=== PATIENT | female | born 1970 | race Caucasian/White ===

== ENCOUNTER 2020-08-29 20:03 | Emergency (ER) | payer SELFPAY ==
[2020-08-29 21:37] LABS: #Basophils 0.1 10x3/uL (0.0-0.2); #Eosinphils 0.2 10x3/uL (0.0-0.5); #Monocytes 0.5 10x3/uL (0.0-1.1); #Neutrophils 5.2 10x3/uL (1.5-8.4); %Basophils 0.9 % (0.0-2.0); %Eosinophils 2.1 % (0.0-6.0); %Lymphocytes 36.2 % (18.0-47.0); %Monocytes 5.3 % (0.0-10.0); %Neutrophils 55.3 % (40.0-75.0); Hemoglobin 11.6 g/dL (12.0-15.5); Mean Corpuscular HGB CONC 32.3 g/dL (32.0-36.0); Mean Corpuscular Hemoglobin 28.6 pg (27.0-33.0); Mean Corpuscular Volume 88.4 fl (81.6-98.3); Mean Platelet Volume 10.9 fl (7.4-10.4); Platelet Count 304 10x3/uL (150-450); RBC Distribution Width 14.5 % (11.5-14.5); Red Blood Cell (RBC) Count 4.06 10x6/uL (3.90-5.03); White Blood Cell (WBC) Count 9.3 10x3/uL (3.5-10.5)
[2020-08-29 21:50] LABS: ALT (SGPT) 12 U/L (8-55); AST (SGOT) 23 U/L (5-34); Albumin 4.2 g/dL (3.5-5.0); Alkaline Phosphatase 60 U/L (40-110); Anion Gap 14 mmol/L (10-20); BUN (Urea Nitrogen) 21 mg/dL (7.0-18.7); Bilirubin, Total 0.1 mg/dL (0.2-1.2); Calc. Creatinine Clearance 0 mL/min (70-130); Calcium 9.9 mg/dL (7.8-10.44); Carbon Dioxide 27 mmol/L (22-29); Chloride 96 mmol/L (98-107); Globulin 4.4 g/dL (2.4-3.5); Glucose 84 mg/dL (70-105); Potassium 4.4 mmol/L (3.5-5.1); Protein, Total 8.6 g/dL (6.0-8.3); Sodium 133 mmol/L (136-145)
[2020-08-29] MEDS ORDERED: HYDROcodone/Acetaminophen 5/325 mg Tablet ONE (22:03)
[2020-08-29] MEDS ORDERED: Ketorolac Tromethamine 30 MG/ML VIAL ONE (22:03)
== END 2020-08-29 22:57 | disposition home or self-care (01) ==
LOC: CSHERS 20:03
DX: K02.9 Dental caries, unspecified (principal); I10 Essential (primary) hypertension; F17.210 Nicotine dependence, cigarettes, uncomplicated
CPT/HCPCS: 36415; 80053; 84443; 85025; 96372; 99283; J1885

== ENCOUNTER 2022-09-14 15:59 | Emergency (ER) | payer SELFPAY ==
[2022-09-14] MEDS ORDERED: Ketorolac Tromethamine 30 MG/ML VIAL ONE (16:51)
[2022-09-14 16:57] LABS: #Basophils 0.1 10x3/uL (0.0-0.2); #Monocytes 0.4 10x3/uL (0.0-1.1); #Neutrophils 5.8 10x3/uL (1.5-8.4); %Basophils 1.2 % (0.0-2.0); %Eosinophils 0.2 % (0.0-6.0); %Lymphocytes 26.9 % (18.0-47.0); %Monocytes 4.2 % (0.0-10.0); %Neutrophils 67.4 % (40.0-75.0); Hemoglobin 12.2 g/dL (12.0-15.5); Mean Corpuscular HGB CONC 32.4 g/dL (32.0-36.0); Mean Corpuscular Hemoglobin 28.6 pg (27.0-33.0); Mean Corpuscular Volume 88.1 fl (81.6-98.3); Mean Platelet Volume 10.6 fl (7.4-10.4); Platelet Count 347 10x3/uL (150-450); RBC Distribution Width 13.1 % (11.5-14.5); Red Blood Cell (RBC) Count 4.27 10x6/uL (3.90-5.03); White Blood Cell (WBC) Count 8.7 10x3/uL (3.5-10.5)
[2022-09-14 17:02] LABS: ALT (SGPT) Less than 6 U/L (8-55); AST (SGOT) 16 U/L (5-34); Albumin 4.2 g/dL (3.5-5.0); Alkaline Phosphatase 84 U/L (40-110); Anion Gap 14 mmol/L (10-20); BUN (Urea Nitrogen) 10 mg/dL (9.8-20.1); Bilirubin, Total 0.3 mg/dL (0.2-1.2); Calc. Creatinine Clearance 0 mL/min (70-130); Calcium 9.2 mg/dL (7.8-10.44); Carbon Dioxide 24 mmol/L (22-29); Chloride 102 mmol/L (98-107); Estimated GFR 77; Glucose 167 mg/dL (70-105); Potassium 3.6 mmol/L (3.5-5.1); Protein, Total 8.2 g/dL (6.0-8.3); Sodium 136 mmol/L (136-145)
[2022-09-14 17:22] LABS: Free T4 (Free Thyroxine) 0.79 ng/dL (0.70-1.48); Thyroid Stimulating Hormone 7.1824 uIU/mL (0.35-4.94)
== END 2022-09-14 18:15 | disposition home or self-care (01) ==
LOC: CSHERS 15:59
DX: M25.532 Pain in left wrist (principal); E03.9 Hypothyroidism, unspecified; I10 Essential (primary) hypertension
CPT/HCPCS: 80053; 84439; 84443; 85025; 96374; J1885

== ENCOUNTER 2024-11-27 08:25 | Observation (INO) | payer OTHER ==
[2024-11-26 12:57] VITALS: BMI 19.1
[2024-11-27] MEDS ORDERED: PROPOFOL 40 ML ONE (09:18)
[2024-11-27] MEDS ORDERED: Ondansetron PF 4 MG/2 ML Vial ONE (09:26)
[2024-11-27] MEDS ORDERED: SUGAMMADEX SODIUM 200 MG/2 ML VIAL ONE (09:26)
[2024-11-27] MEDS ORDERED: Lidocaine 1% PF 5 ML VIAL ONE (09:26)
[2024-11-27 09:49] LABS: Hematocrit 37.2 % (34.9-44.5)
[2024-11-27] MEDS ORDERED: Acetaminophen 500 MG TAB ONE (09:55)
[2024-11-27] MEDS ORDERED: Bacitracin 1 PK ONE (10:18)
[2024-11-27] MEDS ORDERED: Lidocaine 1% w/Epinephrine 1:200K 30 ML VIAL ONE (10:19)
[2024-11-27] MEDS ORDERED: Phenylephrine 40 MG/NS 250 ML 250 ML ONE (10:56)
[2024-11-27] MEDS ORDERED: HYDROmorphone 0.5 MG/0.5 ML SYRINGE ONE (14:53)
[2024-11-27] MEDS ORDERED: Ondansetron PF 4 MG/2 ML Vial IVP PRN (16:49)
[2024-11-27] MEDS: D5 1/2 NS w/20 mEq KCL 1,000 ML IV SCH (18:27)
[2024-11-27] MEDS: HYDROcodone/Acetaminophen 7.5/325 mg Tablet PO PRN (19:29)
[2024-11-27] MEDS ORDERED: AMOXICILLIN 875 MG PO SCH (21:00)
[2024-11-28] MEDS: diphenhydrAMINE 25 MG CAP PO SCH (01:54)
[2024-11-28 07:53] LABS: Calcium 8.2 mg/dL (7.8-10.44)
[2024-11-28] MEDS: NIFEdipine XL 30 MG ER.TAB PO SCH (08:14)
[2024-11-28] MEDS: Lisinopril 10 MG TAB PO SCH (08:14)
[2024-11-28] MEDS: Calcitriol 0.25 MCG CAP PO SCH (08:14)
[2024-11-28] MEDS: Pantoprazole 40 MG DR.TAB PO SCH (08:14)
[2024-11-28 10:20] VITALS: TEMP 100.5
[2024-11-28 10:30] VITALS: BP 164/86
== END 2024-11-28 11:26 | disposition home or self-care (01) ==
LOC: CSHSDC 08:25 → CSHTELE 14:08
PROVIDERS: ADMIT Specialist; ATTEND Specialist
PROC: 0GTK0ZZ Resection of Thyroid Gland, Open Approach (ICD-10-PCS; principal; 2024-11-27)
DX: E06.3 Autoimmune thyroiditis (principal); E04.8 Other specified nontoxic goiter; E78.5 Hyperlipidemia, unspecified; I11.0 Hypertensive heart disease with heart failure; I50.30 Unspecified diastolic (congestive) heart failure; K21.9 Gastro-esophageal reflux disease without esophagitis; F17.200 Nicotine dependence, unspecified, uncomplicated; Z87.59 Personal history of other complications of pregnancy, childbirth and the puerperium; Z79.899 Other long term (current) drug therapy
CPT/HCPCS: 36415; 82310; 83970; 85014; 88307; 93005; 93010; 96374; 96376; G0378; J1100; J1171; J2272; J2405; J2704; J3010; J3480